=== PATIENT | female | born 1935 | race Caucasian/White ===

== ENCOUNTER 2016-11-21 15:35 | Emergency (ER) | payer MEDICARE ==
[2016-11-21 18:00] VITALS: BP 160/90
--- NOTE | 2016-11-21 18:16 | UC ---
Respiratory Complaint HPI - HPI Summary HPI Summary: pt is accompanied by daughter. Pt c/o cough, "chest congestion" fatigue, fever chills, generalized malaise X 2 weeks - History of Current Complaint Chief Complaint: UCRespiratory Stated Complaint: COUGH/CONGESTION Time Seen by Provider: 11/21/16 18:05 Hx Obtained From: Patient ?: No Onset/Duration: Gradual Onset, Lasting Weeks Timing: Constant Severity Initially: Mild Severity Currently: Moderate Character: Cough: Nonproductive Aggravating Factors: Exertion, Deep Breaths, Recumbent Position Alleviating Factors: Nothing Associated Signs And Symptoms: Positive: Fever, Chills, Wheezing, URI - Risk Factors Cardiac Risk Factors: Hypertension, Elevated Lipids - Allergies/Home Medications Allergies/Adverse Reactions: Allergies Allergy/AdvReac Type Severity Reaction Status Date / Time Morphine and Related AdvReac GI Upset Verified 11/21/16 17:43 Home Medications: Home Medications Acetaminophen [Tylenol] 325 mg PO 11/21/16 [History] Diclofenac Sodium [Diclofenac Sodium Xr] 100 mg PO 11/21/16 [History] Guaifenesin [Tussin Adult] 11/21/16 [History] Pravastatin (NF) [Pravachol (NF)] 11/21/16 [History] guaiFENesin ER TAB [Mucinex*] 11/21/16 [History] PMH/Surg Hx/FS Hx/Imm Hx Previously Healthy: No - see pmh Cardiovascular History Of: Reports: Hypertension - Surgical History Surgical History: Yes Surgery Procedure, Year, and Place: Hip Replacement april 18 - Family History Known Family History: Positive: Cardiac Disease - Social History Alcohol Use: Occasionally Substance Use Type: None Smoking Status (MU): Never Smoked Tobacco When Did the Patient Quit Smoking/Using Tobacco: 20 yrs ago Household Exposure Type: Cigarettes Review of Systems Constitutional: Fever, Chills, Fatigue Skin: Negative Eyes: Negative ENT: Other - nasal congestion Respiratory: Shortness Of Breath, Cough Cardiovascular: Negative Gastrointestinal: Negative Genitourinary: Negative Motor: Negative Neurovascular: Negative Musculoskeletal: Negative Neurological: Negative Psychological: Negative All Other Systems Reviewed And Are Negative: Yes Physical Exam Triage Information Reviewed: Yes Appearance: Ill-Appearing Vital Signs: Initial Vital Signs Temp 99.1 F 11/21/16 17:46 Pulse 79 11/21/16 17:46 Resp 20 11/21/16 17:46 BP 160/90 11/21/16 17:46 Pulse Ox 96 11/21/16 17:46 Eye Exam: Normal ENT Exam: Other ENT: Positive: Nasal congestion Neck exam: Normal Respiratory Exam: Other - scattered throughout all Respiratory: Positive: Wheezing Cardiovascular Exam: Normal Musculoskeletal Exam: Normal Neurological Exam: Normal Psychological Exam: Normal Skin Exam: Normal UC Diagnostic Evaluation - Laboratory O2 Sat by Pulse Oximetry: 96 Respiratory Course/Dx - Course Course Of Treatment: IMPRESSION: 1. HYPERINFLATION CONSISTENT WITH COPD. 2. SMALL LEFT PLEURAL EFFUSION WITH MINIMAL LEFT BASILAR ATELECTASIS VERSUS EARLY. CONSOLIDATION. I discussed with serina phillips the results of her Xray. I discussed the need to use her inspirometer at home Q2 hours. To take the prescription medications and follow up with her PCP SE. I also discussed with the pt that if her symptoms worsen in the next 24 hours than she is to seek care at the closest ED - Differential Dx/Diagnosis Differential Diagnosis/HQI/PQRI: Bronchitis, Influenza, Other - pneumonia Provider Diagnoses: pneumonia Discharge - Discharge Plan Condition: Stable Disposition: HOME Prescriptions: Albuterol HFA INHALER* [Ventolin HFA Inhaler*] 2 puff INH Q4H PRN #1 mdi PRN Reason: Sob/Wheezing Azithromycin TAB* [Zithromax TAB (Z-JARAD) 250 mg #6 tabs] 2 tab PO .TODAY, THEN 1 DAILY #1 jarad Benzonatate CAP* [Tessalon CAP*] 100 mg PO TID #21 cap predniSONE TAB* [Deltasone TAB*] 20 mg PO DAILY #4 tab Patient Education Materials: Pleural Effusion (ED), Pneumonia (ED) Referrals: Smith Goins MD [Primary Care Provider] - Additional Instructions: Please follow up with your PCP as soon as possible. If symptoms worsen please seek care at the closest Emergency department.
[2016-11-21] MEDS ORDERED: Ipratropium 0.5MG/2.5ML NEB* 0.5 MG/2.5 ML NEB.SOLN INH ONE (18:18)
[2016-11-21] MEDS ORDERED: Albuterol 2.5 MG/3 ML NEB.SOL* (0.083%) INH ONE (18:18)
[2016-11-21] MEDS ORDERED: Acetaminophen TAB* 325 MG PO ONE (18:18)
[2016-11-21] MEDS ORDERED: Azithromycin TAB* 250 MG PO ONE (18:20)
--- NOTE | 2016-11-21 18:29 | RAD ---
HISTORY: Cough, shortness of breath COMPARISONS: November 25, 2012 VIEWS: 2: Frontal dual-energy and lateral views of the chest. FINDINGS: CARDIOMEDIASTINAL SILHOUETTE: The cardiomediastinal silhouette is normal. TERRI: The terri are normal. PLEURA: There is blunting of left costophrenic angle LUNG PARENCHYMA: There is hyperinflation with flattening of the diaphragm and expansion of the AP diameter of the chest. There is patchy alveolar opacification of left lung base ABDOMEN: The upper abdomen is clear. There is no subphrenic gas. BONES AND SOFT TISSUES: No bone or soft tissue abnormalities are noted. OTHER: None. IMPRESSION: 1. HYPERINFLATION CONSISTENT WITH COPD. 2. SMALL LEFT PLEURAL EFFUSION WITH MINIMAL LEFT BASILAR ATELECTASIS VERSUS EARLY CONSOLIDATION.
== END 2016-11-21 19:20 | disposition home or self-care (01) ==
LOC: UCCORT 15:35
DX: J18.9 Pneumonia, unspecified organism (principal); Z88.5 Allergy status to narcotic agent; Z96.649 Presence of unspecified artificial hip joint
CPT/HCPCS: 71020; 99213; A9270-GY; G0463; J7644